=== PATIENT | male | born 1960 | race Caucasian/White ===

== ENCOUNTER 2017-12-26 21:18 | Emergency (ER) | payer OTHER ==
--- NOTE | 2017-12-26 22:36 | ER Document Report ---
ED General - General Chief Complaint: Blood in Catheter Stated Complaint: URINARY PROBLEM Time Seen by Provider: 12/26/17 22:00 Notes: Patient is a 57-year-old male who presents with complaint of hematuria. Patient has history of renal cancer with metastasis to the bladder. He had his right kidney removed. He had some tumors in his bladder which were treated. He underwent some chemo treatments in his bladder by his urologist. He is from [facility] is down here visiting currently. He said last week he had to areas in his bladder that were "lasered". He said a little bit of blood in his urine after that but that since cleared. He is on blood thinning medication due to history of PE and DVT that occurred in July 2016. Patient says blood thinners were not held and he continues to take them now. He says he has just some very very slight abdominal discomfort but otherwise is pretty nonpainful. He says he urinated 3 times with blood in it. One time had small clot in it. He got a little dizzy the first time that he saw the blood. No other complaints at this time other than that his doctor recently told him that his hemoglobin A1c was above 15. They placed him on a sliding scale insulin however did not give him the sliding scale and therefore is not been using this insulin. He is on Levemir once a day. TRAVEL OUTSIDE OF THE [place] IN LAST 30 DAYS: No - Related Data Allergies/Adverse Reactions: Ioukcey-Zen-Gvw Reductase Inhibitor Adverse Reaction (Verified 12/26/17 22:11) Past Medical History - Social History Smoking Status: Former Smoker Frequency of alcohol use: None Drug Abuse: None Family History: Reviewed & Not Pertinent Patient has suicidal ideation: No Patient has homicidal ideation: No - Past Medical History Cardiac Medical History: Reports: Hx Heart Attack - 2006 Pulmonary Medical History: Reports: Hx COPD Endocrine Medical History: Reports: Hx Diabetes Mellitus Type 2 Renal/ Medical History: Reports: Hx Kidney Stones. Denies: Hx Peritoneal Dialysis Past Surgical History: Reports: Hx Abdominal Surgery - 12 feet of colon removed , Hx Genitourinary Surgery - Left ureter removed, Hx Kidney (Renal Surgery) - Left removed Review of Systems - Review of Systems Notes: My Normal Review Basic REVIEW OF SYSTEMS: CONSTITUTIONAL : Denies fever, chills, or sweats. Denies recent illness. RESPIRATORY: Denies cough, cold, or chest congestion. Denies shortness of breath, difficulty breathing, or wheezing. GASTROINTESTINAL: Denies abdominal pain. Denies nausea, vomiting, or diarrhea. GENITOURINARY: Hematuria MUSCULOSKELETAL: Denies neck or back pain or joint pain or swelling. SKIN: Denies rash or skin lesions. HEMATOLOGIC : On blood thinning medication. NEUROLOGICAL: Denies sensory or motor loss. ALL OTHER SYSTEMS REVIEWED AND NEGATIVE. Physical Exam - Vital signs Vitals: Temp Pulse Resp BP Pulse Ox 97.9 F 106 H 18 155/87 H 99 12/26/17 21:26 12/26/17 21:26 12/26/17 21:26 12/26/17 21:12/26/17 21:26 - Notes Notes: General Appearance: Well nourished, alert, cooperative, no acute distress, no obvious discomfort. Well-appearing. Vitals: reviewed, See vital signs table. Eyes: PERRL, EOMI, Conjuctiva clear Lungs: No wheezing, No rales, No rhonci, No accessory muscle use, good air exchange bilaterally. Heart: Normal rate, Regular rythm, No murmur, no rub Abdomen: Normal BS, soft, No rigidity, very mild suprapubic abdominal tenderness to palpation. Range of abdomen is nontender. No guarding, no rebound, no abdominal masses, no organomegaly Extremities: good pulses in all extremities, no swelling or tenderness in the extremities, no edema. Skin: warm, dry, appropriate color, no rash Neuro: speech clear, oriented x 3, normal affect, responds appropriately to questions. Course - Vital Signs Vital signs: Temp Pulse Resp BP Pulse Ox 97.9 F 106 H 18 155/87 H 99 12/26/17 21:26 12/26/17 21:26 12/26/17 21:26 12/26/17 21:26 12/26/17 21:26 - Laboratory Result Diagrams: 12/26/17 22:53 12/26/17 22:53 Laboratory results interpreted by me: 12/26/17 12/26/17 12/26/17 21:48 22:53 22:53 Hgb 11.8 L Hct 36.5 L MCV 73 L MCH 23.7 L RDW 16.3 H Seg Neutrophils % 39.0 L Monocytes % 16.0 H Sodium 135.3 L Creatinine 1.64 H Est GFR ( Amer) 52 L Est GFR (Non-Af Amer) 43 L Glucose 328 H Urine Protein 100 H Urine Glucose (UA) >=500 H Urine Blood LARGE H Ur Leukocyte Esterase TRACE H Discharge - Discharge Clinical Impression: Renal mass Hematuria Qualifiers: Hematuria type: unspecified type Qualified Code(s): R31.9 - Hematuria, unspecified Condition: Good Disposition: HOME, SELF-CARE Additional Instructions: Please hold your blood thinner for the next [address] Veloz's office first thing in the am to make a follow up appointment for this week. please return to the ER immediately if you have worsening bleeding, fevers, or difficulty urinating. I have printed off a copy of your labs and made a copy of your ultrasound on a disk to take to your appointment. Prescriptions: Cephalexin Monohydrate [Keflex 500 mg Capsule] 500 mg PO BID 5 Days #10 capsule
[2017-12-26 22:59] LABS: APPEARANCE,URINE CLOUDY; BILIRUBIN,URINE NEGATIVE (NEGATIVE); COLOR,URINE RED; GLUCOSE, URINE >=500 mg/dL (NEGATIVE); KETONES,URINE NEGATIVE (NEGATIVE); LEUKOCYTE ESTERASE,URINE TRACE (NEGATIVE); NITRITE,URINE NEGATIVE (NEGATIVE); PROTEIN,URINE 100 mg/dL (NEGATIVE); URINE SPECIFIC GRAVITY 1.023; UROBILINOGEN,URINE NEGATIVE mg/dL (<2.0)
[2017-12-26 23:09] LABS: ABSOLUTE BASOPHILS # (AUTO) 0.1 10^3/uL (0.0-0.2); ABSOLUTE EOSINOPHILS # (AUTO) 0.5 10^3/uL (0.0-0.6); ABSOLUTE LYMPHOCYTES (AUTO) 3.2 10^3/uL (0.5-4.7); ABSOLUTE MONOCYTES (AUTO) 1.3 10^3/uL (0.1-1.4); ABSOLUTE NEUT (AUTO) 3.2 10^3/uL (1.7-8.2); EOSINOPHILS % (AUTO) 5.5 % (0-6); HEMATOCRIT 36.5 % (37.9-51.0); HEMOGLOBIN 11.8 g/dL (13.5-17.0); LYMPHOCYTES % (AUTO) 38.5 % (13-45); MEAN CORPUSCULAR HEMOGLOBIN 23.7 pg (27.0-33.4); MEAN CORPUSCULAR HGB CONC 32.4 g/dL (32.0-36.0); MEAN CORPUSCULAR VOLUME 73 fl (80-97); PLATELET COUNT 425 10^3/uL (150-450); RED BLOOD COUNT 4.99 10^6/uL (4.35-5.55); RED CELL DISTRIBUTION WIDTH 16.3 % (11.5-14.0); TOTAL CELLS COUNTED % (AUTO) 100 %; WHITE BLOOD COUNT 8.2 10^3/uL (4.0-10.5)
[2017-12-26 23:27] LABS: ANION GAP 13 (5-19); BLOOD UREA NITROGEN 18 mg/dL (7-20); CALCIUM 9.8 mg/dL (8.4-10.2); CARBON DIOXIDE 22 mmol/L (22-30); CHLORIDE 100 mmol/L (98-107); GLUCOSE 328 mg/dL (75-110); INTERNATIONAL RATION (INR) 1.04; POTASSIUM 4.9 mmol/L (3.6-5.0); PROTHROMBIN TIME 14.1 SEC (11.4-15.4); SODIUM 135.3 mmol/L (137-145)
[2017-12-26 23:28] LABS: PARTIAL THROMBOPLASTIN TIME 33.3 SEC (23.5-35.8)
--- NOTE | 2017-12-26 23:38 | RADIOLOGY REPORT (SQ) ---
EXAM DESCRIPTION: US RETROPERITONEUM COMPLETED DATE/TME: 12/26/2017 22:31 CLINICAL HISTORY: 57 years, Male, hematuria, hx of bladder and renal cancer Findings: The right kidney measures 13.5 x 6.1 x 6.5 cm. No right hydronephrosis. Right kidney demonstrates a mildly hypoechoic nodule measuring 4.1 x 3.4 x 3.6 cm in the midpole. Status post left nephrectomy. Bladder is mildly distended and appears unremarkable. IMPRESSION: Right renal mass is suspicious for malignancy until proven otherwise. Recommend follow-up CT or MRI before and after intravenous contrast.
[2017-12-27] MEDS ORDERED: CEPHALEXIN 500 MG CAPSULE PO ONE (00:44)
[2017-12-27 01:23] VITALS: BP 134/85
== END 2017-12-27 01:23 | disposition home or self-care (01) ==
LOC: ER 21:18
DX: N28.89 Other specified disorders of kidney and ureter (principal); R31.9 Hematuria, unspecified; T83.9XXA Unspecified complication of genitourinary prosthetic device, implant and graft, initial encounter; R42 Dizziness and giddiness; Z85.53 Personal history of malignant neoplasm of renal pelvis; Z87.891 Personal history of nicotine dependence; Z79.899 Other long term (current) drug therapy; J44.9 Chronic obstructive pulmonary disease, unspecified; I25.2 Old myocardial infarction; E11.9 Type 2 diabetes mellitus without complications; Z79.4 Long term (current) use of insulin
CPT/HCPCS: 36415; 76770; 80048; 81001; 85025; 85610; 85730; 86850; 86900; 86901; 99284